=== PATIENT | male | born 1985 | race Two or more races ===

== ENCOUNTER 2017-06-22 20:22 | Emergency (ER) | payer OTHER ==
[~2017-06-22] VITALS: Ht 185.4 cm; Wt 138.3 kg
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
--- NOTE | 2017-06-22 20:35 | NUR ---
upon arrival to er, patient is alert and oriented x3, nad noted. vss. nondiaphoretic. follow commands. denies any medical complaints. denies any alcohol or drug intake. comfort measures rendered. Lapd at bedside.
--- NOTE | 2017-06-22 22:57 | NUR ---
patient eloped from facility. vss. nad noted. ambulatory with steady gait. Dr Bentley notified.
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
[2017-06-22] MEDS ORDERED: ACETAMINOPHEN ES 500 MG TABLET PO ONE (23:00)
[2017-06-22] MEDS ORDERED: IV NS 0.9% 1,000 ML BAG IV ONE (23:00)
[2017-06-22 23:25] VITALS: BP 140/75
== END 2017-06-22 23:31 | disposition home or self-care (01) ==
LOC: ER 20:28
DX: R46.89 Other symptoms and signs involving appearance and behavior (principal); R41.0 Disorientation, unspecified
CPT/HCPCS: 36415; 99283; A4606; G0480; Z7610